=== PATIENT | female | born 1975 | race African-American/Black ===

== ENCOUNTER 2018-01-23 22:54 | Emergency (ER) | payer MEDICARE ==
[~2018-01-23] VITALS: Ht 185.4 cm; Wt 207.3 kg
[2018-01-23 22:58] VITALS: Ht 185.4 cm; Wt 207.3 kg
[2018-01-23] MEDS ORDERED: ZESTRIL40 MG PO (23:09)
[2018-01-23] MEDS ORDERED: FERROUS SULFAT325 MG PO (23:09)
[2018-01-23] MEDS ORDERED: ZOCOR40 MG PO (23:09)
[2018-01-23] MEDS ORDERED: VITAMIN D5000 UNIT PO (23:09)
[2018-01-23] MEDS ORDERED: GLUCOPHAGE500 MG PO (23:09)
[2018-01-24] MEDS ORDERED: ROBAXIN-750750 MG PO (01:01)
[2018-01-24] MEDS ORDERED: VOLTAREN75 MG PO (01:01)
[2018-01-24] MEDS ORDERED: ATARAX 25 MG TA25 MG PO (01:01)
[2018-01-24 01:32] VITALS: BP 155/78
== END 2018-01-24 01:32 | disposition home or self-care (01) ==
LOC: D.ER 22:54
DX: M25.50 Pain in unspecified joint (principal); L25.9 Unspecified contact dermatitis, unspecified cause; M79.1 Myalgia; M54.5 Low back pain; E11.9 Type 2 diabetes mellitus without complications; I10 Essential (primary) hypertension; F17.200 Nicotine dependence, unspecified, uncomplicated

== ENCOUNTER 2018-09-08 19:00 | Outpatient (CLI) | payer MEDICARE ==
[2018-01-23 22:58] VITALS: BMI 60.3
[~2018-09-08 19:00] MED LIST: ATARAX 25 MG TA25 MG PO; FERROUS SULFAT325 MG PO; GLUCOPHAGE500 MG PO; ROBAXIN-750750 MG PO; VITAMIN D5000 UNIT PO; VOLTAREN75 MG PO; ZESTRIL40 MG PO; ZOCOR40 MG PO
== END 2018-09-08 23:59 | disposition home or self-care (01) ==
LOC: D.MAMMO 19:00
PROVIDERS: ATTEND Internal Medicine
DX: Z12.31 Encounter for screening mammogram for malignant neoplasm of breast (principal)

== ENCOUNTER 2020-09-19 15:00 | Outpatient (CLI) | payer MEDICARE, MEDICAID ==
[2018-01-23 22:58] VITALS: BMI 60.3
== END 2020-09-19 23:59 | disposition home or self-care (01) ==
LOC: D.MAMMO 15:00
PROVIDERS: ATTEND Internal Medicine
DX: Z12.31 Encounter for screening mammogram for malignant neoplasm of breast (principal)

== ENCOUNTER 2020-10-11 14:00 | Outpatient (CLI) | payer MEDICARE, MEDICAID ==
[2018-01-23 22:58] VITALS: BMI 60.3
== END 2020-10-11 23:59 | disposition home or self-care (01) ==
LOC: D.MAMMO 14:00
PROVIDERS: ATTEND Internal Medicine
DX: R92.8 Other abnormal and inconclusive findings on diagnostic imaging of breast (principal)